=== PATIENT | female | born 1955 | race Caucasian/White ===

== ENCOUNTER 2019-11-15 12:32 | Emergency (ER) | payer OTHER, SELFPAY ==
[2019-11-15 12:40] VITALS: BP 148/81; PULSE 80; RESP 14; TEMP 36.6; O2SAT 99
--- NOTE | 2019-11-15 12:50 | ED.BACK ---
HPI - Back Pain/Injury General Chief Complaint: Back Pain/Injury Stated Complaint: pain on left side/back Time Seen by Provider: 11/15/19 12:50 Source: patient and RN notes reviewed History of Present Illness HPI Narrative: Patient is a 64-year-old female who presents the urgent care work with complaints of left-sided low back pain. Patient states that she woke up with the pain this morning and notices that it is increased with movement. Describes the pain as a dull ache. Denies any use of [id number] medication for the pain. Denies of any urinary symptoms such as blood in the urine, frequency, urgency, dysuria. Patient states the pain does seem to wrap around to the left abdomen at times. Denies any nausea, vomiting, diarrhea, fever. Patient denies of any history of kidney stones. States that her last bowel movement was this morning however it was pellet-like . No other acute complaints. Denies of any known injury, fall, trauma to the back. No acute distress noted. Patient read the plan of care. Related Data Home Medications Medication Instructions Recorded Confirmed alendronate 70 mg PO WEEKLY 11/15/19 11/15/19 atorvastatin 40 mg PO DAILY 11/15/19 11/15/19 duloxetine 30 mg PO DAILY 11/15/19 11/15/19 duloxetine 60 mg PO DAILY 11/15/19 11/15/19 metoprolol succinate 25 mg PO BID 11/15/19 11/15/19 Allergies Allergy/AdvReac Type Severity Reaction Status Date / Time amoxicillin Allergy Intermediate rash Verified 11/15/19 12:45 Review of Systems Review of Systems: Narrative: CONSTITUTIONAL: Denies fever, chills, or sweats. EYES: Denies visual changes, redness, or discharge. ENT: Denies rhinorrhea, congestion, sore throat, or otalgia. CARDIOVASCULAR: Denies chest pain, palpitations, or edema. RESPIRATORY: Denies cough or dyspnea. GASTROINTESTINAL: Denies abdominal pain, nausea, vomiting, or diarrhea. GENITOURINARY: Denies dysuria or hematuria. SKIN: Denies rash or itching. MUSCULOSKELETAL: Reports of left-sided back pain NEUROLOGIC: Denies headache, numbness, or weakness. All other systems reviewed are negative, except as documented in HPI. PMFSH Comments At the time of my signature, I reviewed and agree with the nursing past medical, surgical, social, and family history. There is no relevant family history pertinent to the patient complaint. Exam Narrative: Exam Narrative: GENERAL: This is a well-nourished, well-developed patient, in no apparent distress. HEAD: normocephalic, atraumatic. EYES: PERRL. Sclera clear/white. Vision is grossly intact. EARS: External ears normal NOSE: External nose normal with no obvious nasal discharge, THROAT: Mucous membranes moist NECK: Neck supple CARDIOVASCULAR: Regular rate and rhythm without murmurs, gallops, or rubs. RESPIRATORY: Clear to auscultation. Breath sounds equal bilaterally. GASTROINTESTINAL: Abdomen soft, non-tender, nondistended. Bowel sounds are active. SKIN: warm, intact with no suspicious lesions or rash, good texture and turgor. NEURO: awake, alert, and oriented to person, place and time. There were no obvious focal neurologic abnormalities. EXTREMITIES: No clubbing, cyanosis, or edema. BACK: Negative CVA tenderness; negative bilateral SLE Course Vital Signs Vital signs: Vital Signs Temperature 97.8 F 11/15/19 12:40 Pulse Rate 80 11/15/19 12:40 Respiratory Rate 14 11/15/19 12:40 Blood Pressure 148/81 H 11/15/19 12:40 Pulse Oximetry 99 11/15/19 12:40 Temperature 97.8 F 11/15/19 12:40 Pulse Rate 80 11/15/19 12:40 Respiratory Rate 14 11/15/19 12:40 Blood Pressure 148/81 H 11/15/19 12:40 Pulse Oximetry 99 11/15/19 12:40 Reviewed-patient is informed that they may have pre-hypertension or hypertension based on a blood pressure reading in the department. I recommend the patient call the primary care provider listed on their discharge instructions or a physician of their choice this week to arrange follow-up for further ev
== END 2019-11-15 13:07 | disposition home or self-care (01) ==
PROVIDERS: Emergency Provider Nurse Practitioner Family
DX: K59.00 Constipation, unspecified (principal); M54.5 Low back pain; E78.00 Pure hypercholesterolemia, unspecified; I10 Essential (primary) hypertension; M81.0 Age-related osteoporosis without current pathological fracture
CPT/HCPCS: 81003; 99212; G0463

== ENCOUNTER 2023-06-01 14:54 | Emergency (ER) | payer OTHER, SELFPAY ==
[2023-06-01 15:00] VITALS: BP 143/80; PULSE 69; RESP 20; TEMP 36.5; O2SAT 98
--- NOTE | 2023-06-01 15:20 | ED.GENADULT ---
HPI - General Adult General Chief complaint: Upper Respiratory Infection Stated complaint: ears/head/chest Source: patient, RN notes reviewed and old records reviewed Mode of arrival: ambulatory Limitations: no limitations History of Present Illness HPI narrative: 68-year-old female presents to [facility] with complaints sinus congestion, sinus pressure, headache, dry cough, pain with coughing, fever/chills, fatigue, myalgia this started late night. Patient taking ibuprofen with some relief. Patient denies dizziness, weakness, shortness of breath MD complaint: cough, congestion, myalgia Onset (ago): day(s) (4) Related Data Home Medications Medication Instructions Recorded Confirmed alendronate 70 mg tablet 70 mg PO WEEKLY 11/15/19 11/15/19 atorvastatin 40 mg tablet 40 mg PO DAILY 11/15/19 11/15/19 duloxetine 30 mg capsule,delayed 30 mg PO DAILY 11/15/19 11/15/19 release duloxetine 60 mg capsule,delayed 60 mg PO DAILY 11/15/19 11/15/19 release metoprolol succinate 25 mg 25 mg PO BID 11/15/19 11/15/19 tablet,extended release 24 hr Allergies Allergy/AdvReac Type Severity Reaction Status Date / Time amoxicillin Allergy Intermediate rash Verified 12/14/19 13:04 Review of Systems Constitutional: Constitutional: Reports no additional constitutional complaints, Reports body ache(s), Reports chills, Reports fatigue, Reports fever(s) and Reports headache(s) Eyes: Eyes: Reports no additional eye complaints and Denies blurry vision ENT: Reports system reviewed and no additional complaints, except as documented, Denies vertigo, Denies dizziness, Denies ear discharge, Reports otalgia, Denies facial pain, Reports headache(s), Reports nasal congestion, Denies nasal discharge, Reports sinus pain, Reports sinus pressure and Denies sore throat Cardiovascular: Cardiovascular: Reports no additional cardiovascular complaints, Denies chest pain, Denies chest pain at rest, Denies rapid heart rate and Denies dyspnea Respiratory: Respiratory: Reports no additional respiratory complaints, Denies chest congestion, Reports cough, Denies pain on inspiration, Denies pain with cough and Denies dyspnea Gastrointestinal: Gastrointestinal: Denies abdominal pain, Denies diarrhea, Denies nausea and Denies vomiting Integumentary/Breasts: Skin/Breast: Denies rash Neurologic: Reports system reviewed and no additional complaints, except as documented, Denies vertigo, Denies dizziness and Denies headache(s) Endocrine: Endocrine: Denies fatigue PMFSH Comments At the time of my signature, I reviewed and agree with the nursing past medical, surgical, social, and family history. There is no relevant family history pertinent to the patient complaint. Exam Const: General: cooperative, healthy appearing, no acute distress and well nourished Nutritional Appearance: well nourished Orientation/consciousness: patient oriented x3 Limitations: no limitations HENMT: Head: normal to inspection and normocephalic Ears: external ears normal, TM's normal bilaterally, mastoids normal and Abnormal EAC present Face/Nose/Sinus: normal facial exam Face and sinus: normal facial exam and sinus tenderness frontal Mouth: Yes Normal oral and palatal mucosa present, Yes oropharynx normal and Yes moist mucous membranes Throat: tonsils normal, uvula midline, posterior oropharynx abnormal erythema and no uvular edema Eyes: General: appearance normal, both eyes and all related structures Sclera: sclerae normal Pupils: Equal, round and reactive pupils present Resp: Effort & Inspection: normal respiratory effort, able to speak in complete sentences, no audible wheezes, no cough, no respiratory distress and no retractions Auscultation: clear to auscultation bilaterally, no crackles, no rales, no rhonchi and no wheezes Cardio: Rate: regular rate Rhythm: regular rhythm Skin: General skin exam: normal color and no rashes or lesions noted Neuro: General: patient or
== END 2023-06-01 15:45 | disposition home or self-care (01) ==
PROVIDERS: Emergency Provider Registered Nurse
DX: J01.10 Acute frontal sinusitis, unspecified (principal); Z20.822 Contact with and (suspected) exposure to COVID-19; E78.00 Pure hypercholesterolemia, unspecified; I10 Essential (primary) hypertension
CPT/HCPCS: 87426; 87804; 99203; G0463